=== PATIENT | female | born 1960 | race Hispanic/Latino ===

== ENCOUNTER 2019-04-20 10:16 | Observation (INO) | payer MEDICARE ==
[~2019-04-20] VITALS: Ht 157.5 cm; Wt 71.8 kg
[~2019-04-20 10:16] MED LIST: LOSARTAN POTAS100 MG PO
--- OUTSIDE RECORDS SUMMARY | 2019-04-20 10:19 | XMS REPORT ---
Author Author [facility] Address Unknown Phone Unavailable Care Team Providers Care Mold Design Engineer Name Role Phone Unavailable Unavailable Payers Payer Name Policy Type Policy Number Effective Date Expiration Date Problems This patient has no known problems. Allergies, Adverse Reactions, Alerts Allergy Name Allergy Type Status Severity Reaction(s) Onset Date Inactive Date Treating Clinician Comments No Known Allergies DA Active U 2015-07-28 00:00:00 Medications This patient has no known medications. Encounters Start Date/Time End Date/Time Encounter Type Admission Type Attending Clinicians Care Facility Care Department Encounter ID 2019-04-05 21:22:00 2019-04-05 21:22:00 Emergency E [place] [id number] Results Test Description Test Time Test Comments Text Results Atomic Results Result Comments CREATINE KINASE (CK) 2019-03-28 04:42:00 CREATINE KINASE (CK) (test code=CK) 132 Unit/L 26-192 NT PRO-BRAIN NATRIURETIC [id number] 04:42:00* Test Item Value Reference Range Comments NT PRO-BRAIN NATRIURETIC PEPTI (test code=PROBNP) 214 PG/ML 0-100 BASIC METABOLIC [id number] 04:32:00* Test Item Value Reference Range Comments SODIUM (test code=NA) 141 mmol/L 134-147 POTASSIUM (test code=K) 3.7 mmol/L 3.4-5.0 CHLORIDE (test code=CL) 106 mmol/L 100-108 CARBON DIOXIDE (test code=CO2) 28 mmol/L 21-32 ANION GAP (test code=GAP) 7.0 GAP calc 4.0-15.0 GLUCOSE (test code=GLU) 104 MG/DL 70-110 BLOOD UREA NITROGEN (test code=BUN) 17 MG/DL 7-18 GLOMERULAR FILTRATION RATE (test code=GFR) estGFR >60 CREATININE (test code=CREAT) MG/DL 0.6-1.0 CALCIUM (test code=CA) 8.7 MG/DL 8.5-10.1 Completed by Nursing: [id number] 04:32:00* Test Item Value Reference Range Comments TROPONIN-I (test code=TROPI) NG/ML 0.000-0.045 Completed by Nursing: NOBASIC METABOLIC [id number] 04:32:00* Test Item Value Reference Range Comments SODIUM (test code=NA) 141 mmol/L 134-147 POTASSIUM (test code=K) 3.7 mmol/L 3.4-5.0 CHLORIDE (test code=CL) 106 mmol/L 100-108 CARBON DIOXIDE (test code=CO2) 28 mmol/L 21-32 ANION GAP (test code=GAP) 7.0 GAP calc 4.0-15.0 GLUCOSE (test code=GLU) 104 MG/DL 70-110 BLOOD UREA NITROGEN (test code=BUN) 17 MG/DL 7-18 GLOMERULAR FILTRATION RATE (test code=GFR) >=60 max estimate estGFR >60 CREATININE (test code=CREAT) 0.8 MG/DL 0.6-1.0 CALCIUM (test code=CA) 8.7 MG/DL 8.5-10.1 Completed by Nursing: [id number] 04:32:00* Test Item Value Reference Range Comments TROPONIN-I (test code=TROPI) < 0.015 NG/ML 0.000-0.045 Negative: </=0.045 Positive: >/=0.046 Correlation with serial results, other cardiac markers, and clinical findings is necessary to determine the clinical significance of this result. Quantitative results using different methodologies should not be compared to one another as numerical results may varyby method. Completed by Nursing: NOCBC W/O [id number] 04:18:00* Test Item Value Reference Range Comments WHITE BLOOD CELL (test code=WBC) 6.5 K/mm3 3.5-11.0 RED BLOOD CELL (test code=RBC) 4.56 M/mm3 4.70-6.10 HEMOGLOBIN (test code=HGB) 14.3 G/DL 10.4-14.9 HEMATOCRIT (test code=HCT) 42.1 % 31.5-44.1 MEAN CELL VOLUME (test code=MCV) 92.3 Fl 84.5-98.6 MEAN CELL HGB (test code=MCH) 31.4 pg 27.0-34.2 MEAN CELL HGB CONCETRATION (test code=MCHC) 34.0 G/DL 31.5-34.0 RED CELL DISTRIBUTION WIDTH (test code=RDW) 13.3 SD 11.5-14.5 PLATELET COUNT (test code=PLT) 204.0 K/mm3 150-450 MEAN PLATELET VOLUME (test code=MPV) 11.30 fL 7.0-10.5 - XR CHEST 1 [id number] 04:03:00 Name: GOLDIE LYNN [place] : 1960 Age/S: 59 / F [id number] [facility] Unit #: [id number] Loc: [place] [address] Phys: Melissa Cosme MD Acct: [id number] Dis Date: Status: REG ER PHONE #: [phone] Exam Date: 03/28/2019 0358 FAX #: Reason: SOB EXAMS: CPT: [id number] XR CHEST 1 V 74502 Fluoro Time: DAP (Gy m2): Air Kerma (mGy): STUDY: Chest radiograph HISTORY: Shortness of breath. COMPARISON: None. TECHNIQUE: Frontal view of the chest. SITE: R16 FINDINGS: The cardiac silhouette is unremarkable. There is no focal consolidation, pleural effusion, or pneumothorax. No acute osseous abnormalities are identified. IMPRESSION: No radiographic evidence for acute pulmonary abnormality. at 0403 Reported and signed by: Eric Cervantes M.D. CC: Melissa Cosme MD PAGE 1 Signed Report Name: GOLDIE LYNN [place] : 1960 Age/S: 59 / F [id number] [address] Unit #: [id number] Loc: [place] [address] Phys: Melissa Cosme MD Acct: [id number] Dis Date: Status: REG ER PHONE #: [phone] Exam Date: 03/28/2019 0353 FAX #: Reason: SOB EXAMS: CPT: [id number] XR CHEST 1 V 33660 Fluoro Time: DAP (Gy m2): Air Kerma (mGy): <Continued> Technologist: Lala Manning RT(R)(CT) Trnscb Date/Time: 03/28/2019 (040) [id number] Orig Print D/T: S: 03/28/2019 (0407) PAGE 2 Signed Report
[2019-04-20] MEDS ORDERED: KETOROLAC TROMETHAMINE 30 MG/ML VIAL IV STA (11:33)
[2019-04-20] MEDS ORDERED: ONDANSETRON HCL INJ 2MG/ML 2ML 2 MG/ML VIAL IV STA (11:33)
[2019-04-20] MEDS ORDERED: FAMOTIDINE 20 MG/2 ML VIAL IV STA (11:33)
[2019-04-20 11:38] LABS: BASOPHILS % 0.6 % (0.0-1.0); EOSINOPHILS % 0.7 % (0.0-6.0); HEMATOCRIT 43.8 % (34.2-44.1); HEMOGLOBIN 14.6 g/dL (12.0-16.0); LYMPHOCYTES # (AUTO) 1.4 (1.0-3.2); MEAN CORPUSCULAR HEMOGLOBIN 29.8 pg (28-32); MEAN CORPUSCULAR HGB CONC 33.3 g/dL (31-35); MEAN CORPUSCULAR VOLUME 89.4 fL (81-99); MONOCYTES # (AUTO) 0.3 (0.2-0.8); MONOCYTES % 6.1 % (4.4-11.3); NEUTROPHILS # (AUTO) 3.6 (2.1-6.9); NEUTROPHILS % 67.2 % (38.7-80.0); PLATELET COUNT 148 x10e3/uL (140-360); RED CELL DISTRIBUTION WIDTH 12.4 % (11.7-14.4)
[2019-04-20 12:00] LABS: ALANINE AMINOTRANSFERASE 90 IU/L (0-55); ALBUMIN 4.2 g/dL (3.5-5.0); ALBUMIN/GLOBULIN RATIO 1.1 (0.8-2.0); ALKALINE PHOSPHATASE 34 IU/L (40-150); ANION GAP 16.7 mmol/L (8-16); BLOOD UREA NITROGEN 14 mg/dL (7-26); BUN/CREATININE RATIO 18 (6-25); CALCIUM 10.1 mg/dL (8.4-10.2); CARBON DIOXIDE 24 mmol/L (22-29); CHLORIDE 95 mmol/L (98-107); CREATINE KINASE 122 IU/L (29-168); CREATININE, SERUM 0.79 mg/dL (0.57-1.11); EST GLOMERULAR FILTRATION RATE > 60 ML/MIN (60-); GLUCOSE 77 mg/dL (74-118); POTASSIUM 3.7 mmol/L (3.5-5.1); SODIUM 132 mmol/L (136-145)
[2019-04-20] MEDS ORDERED: DONNATAL/LIDOCAINE/MAALOX 30 ML SUSP PO SCH (12:00)
[2019-04-20 12:18] LABS: BILIRUBIN,URINE NEGATIVE (NEGATIVE); CLARITY,URINE CLEAR (CLEAR); COLOR,URINE YELLOW (YELLOW); LEUKOCYTE ESTERASE ,URINE NEGATIVE (NEGATIVE); NITRITE,URINE NEGATIVE (NEGATIVE); PROTEIN,URINE DIPSTICK NEGATIVE (NEGATIVE); URINE UROBILINOGEN 0.2 mg/dL (0.2 - 1)
[2019-04-20 12:19] LABS: KETONES,URINE 2+ (NEGATIVE)
--- NOTE | 2019-04-20 12:30 | NUR ---
VIRAL LACY AT BEDSIDE FOR PT RE-EVAL AT THIS TIME, PERFORMING EXAM AND OCCULT STOOL TEST AT BEDSIDE.
[2019-04-20 12:34] LABS: BACTERIA,URINE MODERATE /HPF; EPITHELIAL CELLS,URINE FEW /LPF; RBC,URINE 0-5 /HPF (0-5); WBC,URINE (MAN) 0-5 /HPF (0-5)
[2019-04-20] MEDS ORDERED: PANTOPRAZOLE 40 MG 10ML VIAL IV STA (13:32)
[2019-04-20] MEDS ORDERED: SODIUM CHLORIDE 0.9% 1000ML 1,000 ML IV ONE (13:45)
[2019-04-20] MEDS ORDERED: SODIUM CHLORIDE 0.9% 50ML 50 ML ONE (14:57)
--- NOTE | 2019-04-20 15:00 | Diagnostic Imaging Report ---
Exam: CT abdomen and pelvis Clinical history: Difficulty swallowing Technique: Helical images of the abdomen and pelvis were obtained after IV contrast administration Findings: The lung bases are clear. There is no evidence of pleural effusion. The cardiac size is within normal limits. The liver, gallbladder, pancreas, spleen, adrenal glands, and kidneys are unremarkable. The small and large bowels are normal in caliber without evidence of obstruction. A appendix is visualized and unremarkable. There is no evidence of lymphadenopathy or free fluid. The aorta and IVC are normal in caliber. Small amount of hypodense material is noted in the endometrial cavity which may represent fluid versus blood. The uterus otherwise appears unremarkable. The ovaries are within normal limits. Multiple round slightly hyperdense structures are noted in the pelvic region in the posterior aspect of the subcutaneous fat which may represent lipomas, although lymph nodes cannot be excluded. Impression: 1. Small amount of free fluid versus blood within the endometrial cavity. Signed by: Dr. Jamari Reyes MD on 04/20/2019 2:57 PM
--- NOTE | 2019-04-20 16:13 | Diagnostic Imaging Report ---
EXAM: US GALLBLADDER DATE: 04/20/2019 12:00 AM INDICATION: Abdominal pain COMPARISON: None available TECHNIQUE: Transverse and longitudinal paz scale and color doppler sonographic images of the upper abdomen were obtained. FINDINGS: LIVER 10.4 cm in the right midclavicular line. Normal echogenicity, normal contour, no masses. GALLBLADDER No stones, sludge, wall-thickening or pericholecystic fluid. Negative sonographic Osorio's sign. BILE DUCTS No intra nor extra-hepatic biliary dilation. Common bile duct measures 0.3 cm PANCREAS: Was not well seen secondary to bowel gas RIGHT KIDNEY: 9.8 cm Echogenicity: Normal Collecting System: No hydronephrosis Stones: None Cyst/Mass: None not well seen secondary to bowel gas VESSELS: Aorta: Not well seen secondary to bowel gas Inferior Vena Cava: Visualized portions are normal Main Portal Vein: 0.7 cm, normal size with hepatopetal flow. FREE FLUID: None IMPRESSION: Unremarkable right upper quadrant ultrasound. Signed by: Dr. Jamari Reyes MD on 04/20/2019 4:10 PM
--- NOTE | 2019-04-20 17:50 | Diagnostic Imaging Report ---
History: Swollen lymph nodes Comparison studies: None Technique: Axial, coronal and sagittal images from the skull base to the thoracic inlet. Coronal and sagittal images reconstructed from the axial data. Intravenous contrast: 100 cc of Omnipaque 300. Dose modulation, iterative reconstruction, and/or weight based adjustment of the mA/kV was utilized to reduce the radiation dose to as low as reasonably achievable. Findings: Soft tissues: No abnormalities. Masses: None. Lymph nodes: No radiographically significant adenopathy. Vessels: Arteries and veins are patent. Glands (thyroid, parotid and submandibular): Normal in size and symmetric. No masses. Orbits: No abnormalities. Paranasal sinuses: Clear. Temporal bones: No abnormalities. Skull base and facial bones: Intact. Cervical spine: Straightening of the cervical lordosis with grossly patent canal and foramina IMPRESSION: 1. No sizable neck mass or lymphadenopathy. 2. Unremarkable neck CT. Signed by: DR Lew Echeverria M.D. on 04/20/2019 5:47 PM
[2019-04-20] MEDS ORDERED: MORPHINE SULFATE 2 MG/ML SYR 1ML IV PRN (18:15)
[2019-04-20] MEDS: SODIUM CHLORIDE 0.9% 1000ML 1,000 ML IV SCH (18:45)
[2019-04-20 20:30] VITALS: BP 114/67
--- NOTE | 2019-04-20 22:55 | NUR ---
PATIENT IS NPO AND WILL NEED EGD TOMORROW. ORDERS CALLED IN OVER TELEPHONE. SPOKE TO DR CORNEJO. PM NURSE MADE AWARE.
[2019-04-20] MEDS: ONDANSETRON HCL INJ 2MG/ML 2ML 2 MG/ML VIAL IV PRN (23:00)
[2019-04-20 23:49] VITALS: BP 114/67
[2019-04-21] VITALS (8 sets, daily range): BP systolic 109–141; BP diastolic 57–81
--- NOTE | 2019-04-21 04:48 | Consultation ---
DATE OF CONSULTATION: 04/20/2019 Ms. Nguyen is well known to me from office visit on 08 of April of this month when she presented with complaint of new onset dysphagia and abdominal pain. She has a long history of acid reflux. She claims at her office visit that her symptoms overall being worsening, in addition reports that the new onset of dysphagia and her pain in the epigastric area. She had upper endoscopy in 2016 showed normal esophagus and gastritis. The biopsies are not available. She never had a colonoscopy. At that visit, we ordered lab test in addition to breath test for Helicobacter pylori. We started her on Protonix and we also ordered a barium swallow prior to scheduling her upper endoscopy and also was scheduled for colonoscopy and for colon cancer screening. Her constipation was treated with polyethylene glycol and because of the history of palpitation and chest pain, she was referred to Dr. La. She showed up in the emergency room today complaining that her symptoms have worsened and to the point she is not able to eat at all. She claimed that she has lost 20 pounds in the past couple of weeks. She cannot swallow liquid and solid and this being worsening. She claimed that the medications we started at her office visit, they did not help her. In the emergency room, new lab tests were ordered in addition to CT scan of the abdomen ordered and ultrasound of the gallbladder and the patient will be admitted for management. CURRENT MEDICATIONS: Carafate and Zofran. Also on her medication bag, there is omeprazole and ranitidine, which she said they were not helping. ALLERGIES: SHE IS NOT ALLERGIC TO ANY MEDICATION. PAST MEDICAL HISTORY: Hypertension. PAST SURGICAL HISTORY: She had carpal tunnel surgery and nasal surgery. FAMILY HISTORY: Insignificant. SOCIAL HISTORY: Socially, she is and employed. She has four kids. PHYSICAL EXAMINATION: GENERAL: She is awake, alert, oriented hemodynamically stable. HEENT: Normal sclera. NECK: Supple. LUNGS: Clear to auscultation. HEART: Irregularly irregular. Occasional irregular beat. ABDOMEN: Soft, nontender. No acute sign. EXTREMITIES: No edema. CENTRAL NERVOUS SYSTEM: Motor function grossly intact. IMPRESSION: Her ultrasound CT scan with contrast and lab tests in the emergency room all were normal. Her lab test included a CBC and comprehensive panel, and urinalysis at her office visit early part of this months. Also she had amylase and celiac screening, CBC, comprehensive panel, lipase and magnesium level, ESR, TSH, urinalysis, Giardia antigen, stool for ova and parasite all were also negative. I feel that her symptoms most likely related to severe acid reflux. We will plan to perform upper endoscopy in the morning. As far as the colonoscopy for screening that could be postponed until her discharge. We will continue treating her constipation with polyethylene glycol. She complained of some rectal bleeding in the past few days. I assume that is due to constipation and internal hemorrhoid. Felicita Frost MD RD/MODL /[id number]
[2019-04-21 06:10] LABS: BASOPHILS % 0.5 % (0.0-1.0); HEMATOCRIT 35.8 % (34.2-44.1); HEMOGLOBIN 12.2 g/dL (12.0-16.0); LYMPHOCYTES # (AUTO) 1.4 (1.0-3.2); LYMPHOCYTES % 34.8 % (18.0-39.1); MEAN CORPUSCULAR HEMOGLOBIN 30.3 pg (28-32); MEAN CORPUSCULAR HGB CONC 34.1 g/dL (31-35); MEAN CORPUSCULAR VOLUME 88.8 fL (81-99); MONOCYTES # (AUTO) 0.4 (0.2-0.8); MONOCYTES % 10.3 % (4.4-11.3); NEUTROPHILS # (AUTO) 2.1 (2.1-6.9); NEUTROPHILS % 53.4 % (38.7-80.0); PLATELET COUNT 139 x10e3/uL (140-360); RED BLOOD COUNT 4.03 x10e6/uL (3.6-5.1); RED CELL DISTRIBUTION WIDTH 12.5 % (11.7-14.4)
[2019-04-21 06:26] LABS: ANION GAP 13.2 mmol/L (8-16); BLOOD UREA NITROGEN 10 mg/dL (7-26); BUN/CREATININE RATIO 14 (6-25); CARBON DIOXIDE 23 mmol/L (22-29); CHLORIDE 107 mmol/L (98-107); CREATININE, SERUM 0.74 mg/dL (0.57-1.11); EST GLOMERULAR FILTRATION RATE > 60 ML/MIN (60-); GLUCOSE 70 mg/dL (74-118); POTASSIUM 4.2 mmol/L (3.5-5.1); SODIUM 139 mmol/L (136-145)
--- NOTE | 2019-04-21 07:24 | NUR ---
Report given to JAIRO Neff. Pt resting in bed, pt daughter present at bedside.
[2019-04-21] MEDS: SODIUM CHLORIDE 0.9% 1000ML 1,000 ML IV SCH (07:35)
[2019-04-21] MEDS: ONDANSETRON HCL INJ 2MG/ML 2ML 2 MG/ML VIAL IV PRN ×2 (09:45→18:55)
[2019-04-21] MEDS ORDERED: PROPOFOL IV EMULSION 10 MG/ML 20 ML VIAL ONE (12:38)
[2019-04-21] MEDS ORDERED: MIDAZOLAM HCL 2 MG/2 ML VIAL ONE (13:05)
[2019-04-21] MEDS ORDERED: FENTANYL CITRATE/PF 100MCG/2 ML INJ ONE (13:05)
[2019-04-21] MEDS ORDERED: KETOROLAC TROMETHAMINE 30 MG/ML VIAL IV PRN (15:00)
--- NOTE | 2019-04-21 15:48 | NUR ---
patient leaving for EGD procedure via hospital bed, alert and oriented with daughter at bedside.
--- NOTE | 2019-04-21 16:35 | NUR ---
ATTEMPTED TO DO DPA PT NOT IN ROOM AT THIS TIME
--- NOTE | 2019-04-21 16:50 | NUR ---
report received and patient back to unit at this time. alert and oriented with family at bedside. call smith within reach and bed in lowest positin.
[2019-04-21] MEDS ORDERED: TRAMADOL HCL 50 MG TAB PO PRN (18:15)
[2019-04-21] MEDS: PANTOPRAZOLE 40 MG 10ML VIAL IV SCH (19:29)
[2019-04-21] MEDS: SUCRALFATE 1 GM/10 ML SUSP NG SCH (20:52)
--- NOTE | 2019-04-21 21:43 | History and Physical ---
PRIMARY CARE PHYSICIAN: Scott Reynoso M.D. CONSULTING PHYSICIAN: Felicita Frost M.D. CHIEF COMPLAINT: Difficulty swallowing, weight loss, and abdominal pain. HISTORY: A 59-year-old female with a long history of abdominal discomfort. The patient has apparently epigastric problem. The patient had multiple tests done in the past. She was seen by Dr. Frost, came to the emergency room because she was having problem with increase in swallowing problem. The patient claimed that she lost 20 pounds in the past couple of weeks, cannot swallow liquids and solids and condition was worsening. The patient was placed on observation. She just had an EGD done by Dr. Frost. The results are not yet placed on chart, but preliminary found that the patient has hiatal hernia and gastritis. The patient is otherwise stable now. She has some nausea, but she is hungry. PAST MEDICAL HISTORY: Abdominal discomfort, reflux, and progressive weight loss. PAST SURGICAL HISTORY: Status post EGD, she had nasal surgery, carpal tunnel surgery, and previous colonoscopy. SOCIAL HISTORY: The patient does not smoke or use alcohol. No regular drug use. ALLERGIES: MORPHINE. HOME MEDICATIONS: Losartan. PHYSICAL EXAMINATION: VITAL SIGNS: Temperature is 98, blood pressure 123/59, pulse rate is 74, and respirations 18. GENERAL: The patient is not in acute distress, awake. HEENT: Normocephalic, atraumatic. Pupils reactive. Anicteric. NECK: Supple grossly. PULMONARY: Diminished breath sounds. CARDIOVASCULAR: Regular rate and rhythm. ABDOMEN: Soft, nondistention. Generalized discomfort in epigastric area. EXTREMITIES: No cyanosis or edema. NEUROLOGIC: No gross focal deficit. LABORATORY DATA: Sodium is 139, potassium 4.2, chloride 107, bicarb 23, BUN is 10, creatinine 0.7, and glucose is 70. WBCs are 4, hemoglobin 12.2, hematocrit 35.8, and platelets are 139. Urinalysis, 2+ ketones, negative leukocyte esterase. IMAGING DATA: CT scan of abdomen and pelvis that was done shows small amount of free fluid versus blood within the endometrial cavity. Gallbladder ultrasound otherwise unremarkable. CT scan show no sizable neck mass or lymphadenopathy. IMPRESSION: Dysphagia, reflux, possibly secondary to hiatal hernia. EGD is done, confirmed hiatal hernia with reflux. Pending an official report from Dr. Frost. PLAN: PPI. Carafate suspension. Pain medication, tramadol for now since the patient is allergic to morphine. We will monitor the patient closely. MD JENNIFER Fernandez/VANESSA /[id number]
[2019-04-22] VITALS: BP 102/56
--- NOTE | 2019-04-22 02:27 | NUR ---
Explained to patient Dr. Jesus said she could discharge last night if she tolerated food. Patient states she is afraid to go home and get nauseated again. Dr. Jesus states it is ok to discharge in the morning. Patient is aware..
[2019-04-22 04:00] VITALS: BP 112/64
[2019-04-22] MEDS: ONDANSETRON HCL INJ 2MG/ML 2ML 2 MG/ML VIAL IV PRN (04:40)
[2019-04-22 06:09] VITALS: BP 112/60
--- NOTE | 2019-04-22 06:10 | NUR ---
Patient states she still feels nauseated after eating approx 1/3 of a banana. Zofran administered. Also states some dizziness. Vital signs taken/charted. Will continue to monitor.
--- NOTE | 2019-04-22 06:50 | NUR ---
rounded with shift engineer nurse, patient aware of change and in no distress. call smith within reach and bed in lowest position with daughter at bedside.
[2019-04-22 07:35] VITALS: BP 116/62
[2019-04-22] MEDS: SUCRALFATE 1 GM/10 ML SUSP NG SCH (07:35)
[2019-04-22 08:15] VITALS: BP 116/62
[2019-04-22] MEDS: PANTOPRAZOLE 40 MG 10ML VIAL IV SCH (08:30)
[2019-04-22] MEDS ORDERED: CARAFATE1 GM/10 ML PO (09:44)
[2019-04-22] MEDS ORDERED: PANTOPRAZOLE SO40 MG PO (09:44)
--- NOTE | 2019-04-22 10:11 | NUR ---
patient alert and oriented with daughter at bedside. discharge instructions given at this time, both verbalized understanding. IV discontinued, catheter in tact and small dressing applied. Patient to be wheeled out to personal auto for daughter to drive home.
--- NOTE | 2019-04-22 20:08 | Discharge Summary ---
The patient is on observation. FINAL DIAGNOSES: 1. Dysphagia, status post EGD, finding of gastritis and small hiatal hernia. 2. Anxiety disorder, most likely. SUMMARY: The patient is 59 years female with complete workup with respect to epigastric pain. The patient was seen by Dr. La and cardiac workup was negative. The patient is stable. She underwent EGD, found to have gastritis and small hiatal hernia. No new ulcer noted. The patient was placed on PPI and Carafate suspension. The patient is stable, discharged home today. Follow up as an outpatient with Dr. Frost as planned. The patient did have gallbladder ultrasound done, found unremarkable right upper quadrant ultrasound. The abdominal and pelvic CT scan, otherwise unremarkable as well. There is no lymphadenopathy. Appendix visualized and unremarkable. The liver, gallbladder, pancreas, spleen, adrenal gland, and kidney are unremarkable. The patient is stable and discharged home today. Continue with PPI as given and Carafate suspension. Again, the patient is to follow up with her family physician and Dr. Frost for any further adjustment of medication. The patient is stable to discharge home today. MD JENNIFER Fernandez/RIYAL /[id number]
== END 2019-04-22 10:20 | disposition home or self-care (01) ==
LOC: ER 10:16 → ERHOLD 19:43 → IMCU 20:02
PROVIDERS: ADMIT Internal Medicine; ATTEND Internal Medicine
DX: K29.50 Unspecified chronic gastritis without bleeding (principal); K21.0 Gastro-esophageal reflux disease with esophagitis; R13.10 Dysphagia, unspecified; I10 Essential (primary) hypertension; Z88.5 Allergy status to narcotic agent; Z83.3 Family history of diabetes mellitus; Z82.49 Family history of ischemic heart disease and other diseases of the circulatory system; K44.9 Diaphragmatic hernia without obstruction or gangrene; K59.00 Constipation, unspecified; K64.8 Other hemorrhoids; F41.9 Anxiety disorder, unspecified
CPT/HCPCS: 36415 ×2; 43239; 70491; 74177; 76705; 80048; 80053; 81001; 82550; 82553; 84484; 85025 ×2; 88305; 88312; 93005; 99284; C9113 ×3; G0378 ×3; J1885; J2250; J2405 ×3; J2704; J3010; J7030 ×2